=== PATIENT | female | born 1985 | race Caucasian/White ===

== ENCOUNTER 2023-05-18 11:07 | Emergency (ER) | payer OTHER, SELFPAY ==
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
[2023-05-18 11:18] VITALS: BP 123/94; PULSE 109; RESP 18; TEMP 36.2; O2SAT 100
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
[2023-05-18 13:48] LABS: Estimated CRCL calculation 97 ml/min; Estimated Glomerular Filt Rate > 60
[2023-05-18 15:07] VITALS: BP 130/86; PULSE 80; RESP 14; O2SAT 99
== END 2023-05-18 15:08 | disposition home or self-care (01) ==
PROVIDERS: Emergency Provider Nurse Practitioner Family; PCP Family Medicine
DX: S16.1XXA Strain of muscle, fascia and tendon at neck level, initial encounter (principal); I34.1 Nonrheumatic mitral (valve) prolapse; F41.9 Anxiety disorder, unspecified; F32.A Depression, unspecified; V49.50XA Passenger injured in collision with unspecified motor vehicles in traffic accident, initial encounter
CPT/HCPCS: 70450; 70496; 70498; 72125; 73000; 81025; 99284; Q9967